=== PATIENT | female | born 1960 | race Asian ===

== ENCOUNTER 2020-03-27 18:18 | Emergency (ER) | payer BC ==
[~2020-03-27] VITALS: Ht 149.9 cm; Wt 59.0 kg
[2020-03-27 21:04] LABS: BASO % 0 % (0-3); EOS % 0 % (0-3); HEMATOCRIT 44.8 % (36.0-47.0); HEMOGLOBIN 15.1 g/dL (12.0-15.5); LYMPH # 0.3 x10^3/uL (1.0-4.8); LYMPH % 2 % (24-48); MEAN CORPUSCULAR HEMOGLOBIN 26 pg (25-35); MEAN CORPUSCULAR HGB CONC 34 g/dL (31-37); MEAN CORPUSCULAR VOLUME 78 fL (79-100); MONO # 0.4 x10^3/uL (0.0-1.1); MONO % 2 % (0-9); NEUT # 14.1 x10^3/uL (1.8-7.7); NEUT % 95 % (31-73); PLATELET COUNT 200 x10^3/uL (140-400); RED BLOOD COUNT 5.74 x10^6/uL (3.50-5.40); RED CELL DISTRIBUTION WIDTH 13.7 % (11.5-14.5); WHITE BLOOD COUNT 14.9 x10^3/uL (4.0-11.0)
[2020-03-27 21:13] LABS: CALCIUM 9.8 mg/dL (8.5-10.1); CREATININE 0.9 mg/dL (0.6-1.0); GFR 63.9; POTASSIUM 3.9 mmol/L (3.5-5.1)
[2020-03-27 21:20] LABS: ALBUMIN 3.9 g/dL (3.4-5.0); ALBUMIN/GLOBULIN RATIO 0.9 (1.0-1.7); TOTAL BILIRUBIN 0.8 mg/dL (0.2-1.0); TOTAL PROTEIN 8.4 g/dL (6.4-8.2)
[2020-03-27 21:34] LABS: % BANDS 9 % (0-9); % BASOS 1 % (0-3); % EOS 1 % (0-5); % LYMPHS 1 % (24-48); % MONOS 3 % (0-10); % SEGS 85 % (35-66); PLT ESTIMATE ADEQUATE (ADEQUATE)
[2020-03-27] MEDS ORDERED: CONTRAST GIVEN. MC PRN (21:45)
[2020-03-27] MEDS ORDERED: IOHEXOL 300 MG/ML 100ML VIAL. IV ONE (22:00)
[2020-03-27] MEDS ORDERED: ONDANSETRON PF 4 MG/2 ML VIAL. IVP ONE (22:00)
[2020-03-27] MEDS ORDERED: MORPHINE SULFATE 2 MG/ML VIAL. IV ONE (22:00)
[2020-03-27] MEDS ORDERED: FAMOTIDINE 20 MG/2 ML VIAL IVP ONE (22:00)
--- NOTE | 2020-03-27 22:21 | RAD ---
Exam: CT abdomen/pelvis with intravenous contrast Indication: Nausea vomiting, abdominal pain. Comparison: None Technique: Helical CT imaging performed of the abdomen and pelvis after the intravenous administratio n of 75 mL Omnipaque 300 intravenous contrast. Sagittal and coronal reformats were obtained. One or more of the following individualized dose reduction techniques were utilized for this examinat ion: 1. Automated exposure control 2. Adjustment of the mA and/or kV according to patient size 3. Use of iterative reconstruction technique. Findings: Lower chest: Lung bases are clear. The heart is mildly enlarged. Liver: Normal. Gallbladder/Biliary Tree: Normal. Pancreas: Normal. Spleen: Normal. Adrenal Glands: Normal. Kidneys/Ureters/Bladder: Kidneys are normal in size and enhance symmetrically. No hydronephrosis. Ure ters and bladder are normal. Reproductive Organs: Uterus is unremarkable. No adnexal mass. Stomach, small bowel, and colon: Stomach is normal. No small bowel obstruction. The appendix is candida l. There is fluid throughout the colon consistent diarrheal disease. No focal bowel wall thickening. Vasculature: Abdominal aorta is normal in caliber. Partially calcified splenic artery aneurysm measur ing 1.2 cm. Lymph Nodes: No lymphadenopathy. Peritoneum and retroperitoneum: There is no free fluid or free air. Bones: No acute osseous abnormality. Impression: 1. There is fluid in the colon consistent with diarrheal disease. 2. Otherwise unremarkable CT of abdomen and pelvis. Electronically signed by: Anastasiia Womack MD (03/27/2020 10:19 PM) [id number]
[2020-03-27 23:30] VITALS: BP 116/63
[2020-03-27 23:33] LABS: BILIRUBIN,URINE NEGATIVE (NEG); CLARITY,URINE CLEAR; COLOR,URINE YELLOW; NITRITE,URINE NEGATIVE (NEG); PROTEIN,URINE NEGATIVE (NEG-TRACE); UROBILINOGEN,URINE 0.2 mg/dL (0.2 mg/dL)
[2020-03-27 23:39] LABS: BARBITURATES NEG (NEG); BENZODIAZEPINES NEG (NEG); CANNABINOIDS NEG (NEG); COCAINE NEG (NEG); METHADONE NEG (NEG); OPIATES NEG (NEG); PHENCYCLIDINE NEG (NEG)
[2020-03-27 23:40] LABS: AMPHETAMINE/METHAMPHETAMINE NEG (NEG)
[2020-03-27 23:42] LABS: BACTERIA,URINE 0 /HPF (0-FEW); WBC,URINE OCC /HPF (0-4)
[2020-03-27] MEDS ORDERED: DICY20TA3 PO (23:45)
[2020-03-27] MEDS ORDERED: PROC10TA57 PO (23:45)
--- NOTE | 2020-03-27 23:45 | PHYS DOC ---
Past Medical History Past Medical History: Hypertension (MJ ESTEBAN APRN) Past Surgical History: No Surgical History (MJ ESTEBAN APRN) Smoking Status: Never Smoker Alcohol Use: None (MJ ESTEBAN APRN) General Adult EDM: Chief Complaint: NAUSEA/VOMITING/DIARRHA HPI: HPI: Patient is a 60 year old female with history of hypertension who presents to the ED today complaining of nausea vomiting diarrhea and generalized mild abdominal pain that began this morning after having farrukh noodles and broccoli. Patient denies any hematemesis or melena. Denies any fever. 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 (MJ ESTEBAN APRN) Review of Systems: Review of Systems: Constitutional: Denies fever or chills. [] Eyes: Denies change in visual acuity. [] HENT: Denies nasal congestion or sore throat. [] Respiratory: Denies cough or shortness of breath. [] Cardiovascular: Denies chest pain or edema. [] GI: Reports generalized abdominal pain, nausea vomiting and diarrhea, denies any hematemesis or melena : Denies dysuria. [] Musculoskeletal: Denies back pain or joint pain. [] Integument: Denies rash. [] Neurologic: Denies headache, focal weakness or sensory changes. [] Psychiatric: Denies depression or anxiety. [] (MJ ESTEBAN APRN) Heart Score: Risk Factors: Risk Factors: DM, Current or recent (<one month) smoker, HTN, HLP, family history of CAD, obesity. Risk Scores: Score 0 - 3: 2.5% MACE over next 6 weeks - Discharge Home Score 4 - 6: 20.3% MACE over next 6 weeks - Admit for Clinical Observation Score 7 - 10: 72.7% MACE over next 6 weeks - Early Invasive Strategies (MJ ESTEBAN APRN) Current Medications: Current Medications Medications (Trade) Dose Ordered Sig/Sydni Start Time Stop Time Status Last Admin Dose Admin Famotidine (Pepcid Vial) 20 mg 1X ONCE 03/27/20 22:00 03/27/20 22:01 DC Info (CONTRAST GIVEN -- Rx MONITORING) 1 each PRN DAILY PRN 03/27/20 21:45 03/29/20 21:44 Iohexol (Omnipaque 300 Mg/ml) 75 ml 1X ONCE 1/1/21 22:00 03/27/20 22:01 DC 03/27/20 21:57 75 ML Morphine Sulfate (Morphine Sulfate) 2 mg 1X ONCE 03/27/20 22:00 03/27/20 22:01 DC Ondansetron HCl (Zofran) 4 mg 1X ONCE 03/27/20 22:00 03/27/20 22:01 DC (MJ ESTEBAN LENO SEWER) Allergies: Allergies: Allergies Coded Allergies Type Severity Reaction Last Updated Verified No Known Drug Allergies 03/27/20 No (MJ ESTEBAN LENO SEWER) Physical Exam: PE: Constitutional: Well developed, well nourished, no acute distress, non-toxic appearance. [] HENT: Normocephalic, atraumatic, bilateral external ears normal, oropharynx moist, no oral exudates, nose normal. [] Eyes: PERRLA, EOMI, conjunctiva normal, no discharge. [] Neck: Normal range of motion, no tenderness, supple, no stridor. [] Cardiovascular:Heart rate regular rhythm, no murmur [] Lungs & Thorax: Bilateral breath sounds clear to auscultation [] Abdomen: Bowel sounds normal, soft, no tenderness, no masses, no pulsatile masses. [] Skin: Warm, dry, no erythema, no rash. [] Back: No tenderness, no CVA tenderness. [] Extremities: No tenderness, no cyanosis, no clubbing, ROM intact, no edema. [] Neurologic: Alert and oriented X 3, normal motor function, normal sensory fun ction, no focal deficits noted. [] Psychologic: Affect normal, judgement normal, mood normal. [] (MJ ESTEBAN LENO SEWER) Current Patient Data: Labs: Laboratory Tests Test 03/27/20 20:50 White Blood Count 14.9 x10^3/uL (4.0-11.0) H Red Blood Count 5.74 x10^6/uL (3.50-5.40) H Hemoglobin 15.1 g/dL (12.0-15.5) Hematocrit 44.8 % (36.0-47.0) Mean Corpuscular Volume 78 fL (79-100) L Mean Corpuscular Hemoglobin 26 pg (25-35) Mean Corpuscular Hemoglobin Concent 34 g/dL (31-37) Red Cell Distribution Width 13.7 % (11.5-14.5) Platelet Count 200 x10^3/uL (140-400) Neutrophils (%) (Auto) 95 % (31-73) H Lymphocytes (%) (Auto) 2 % (24-48) L Monocytes (%) (Auto) 2 % (0-9) Eosinophils (%) (Auto) 0 % (0-3) Basophils (%) (Auto) 0 % (0-3) Neutrophils # (Auto) 14.1 x10^3/uL (1.8-7.7) H Lymphocytes # (Auto) 0.3 x10^3/uL (1.0-4.8) L Monocytes # (Auto) 0.4 x10^3/uL (0.0-1.1) Eosinophils # (Auto) 0.0 x10^3/uL (0.0-0.7) Basophils # (Auto) 0.0 x10^3/uL (0.0-0.2) Segmented Neutrophils % 85 % (35-66) H Band Neutrophils % 9 % (0-9) Lymphocytes % 1 % (24-48) L Monocytes % 3 % (0-10) Eosinophils % 1 % (0-5) Basophils % 1 % (0-3) Platelet Estimate Adequate (ADEQUATE) Sodium Level 139 mmol/L (136-145) Potassium Level 3.9 mmol/L (3.5-5.1) Chloride Level 104 mmol/L (98-107) Carbon Dioxide Level 27 mmol/L (21-32) Anion Gap 8 (6-14) Blood Urea Nitrogen 19 mg/dL (7-20) Creatinine 0.9 mg/dL (0.6-1.0) Estimated GFR (Cockcroft-Gault) 63.9 BUN/Creatinine Ratio 21 (6-20) H Glucose Level 147 mg/dL (70-99) H Calcium Level 9.8 mg/dL (8.5-10.1) Total Bilirubin 0.8 mg/dL (0.2-1.0) Aspartate Amino Transferase (AST) 33 U/L (15-37) Alanine Aminotransferase (ALT) 23 U/L (14-59) Alkaline Phosphatase 112 U/L (46-116) Total Protein 8.4 g/dL (6.4-8.2) H Albumin 3.9 g/dL (3.4-5.0) Albumin/Globulin Ratio 0.9 (1.0-1.7) L Lipase 116 U/L (73-393) Ethyl Alcohol Level < 10 mg/dL (0-10) Laboratory Tests 03/27/20 20:50 Laboratory Tests 03/27/20 20:50 Vital Signs: Vital Signs Date Time Temp Pulse Resp B/P (MAP) Pulse Ox O2 Delivery O2 Flow Rate FiO2 03/27/20 20:25 98.0 86 18 136/84 (101) 97 Room Air 98.0 (MJ ESTEBAN APRN) EKG: EKG: [] (MJ ESTEBAN APRN) Radiology/Procedures: Radiology/Procedures: []PROCEDURE: CT ABD PELV W/ IV CONTRST ONLY Exam: CT abdomen/pelvis with intravenous contrast Indication: Nausea vomiting, abdominal pain. Comparison: None Technique: Helical CT imaging performed of the abdomen and pelvis after the intravenous administration of 75 mL Omnipaque 300 intravenous contrast. Sagittal and coronal reformats were obtained. One or more of the following individualized dose reduction techniques were ut ilized for this examination: 1. Automated exposure control 2. Adjustment of the mA and/or kV according to patient size 3. Use of iterative reconstruction technique. Findings: Lower chest: Lung bases are clear. The heart is mildly enlarged. Liver: Normal. Gallbladder/Biliary Tree: Normal. Pancreas: Normal. Spleen: Normal. Adrenal Glands: Normal. Kidneys/Ureters/Bladder: Kidneys are normal in size and enhance symmetrically. No hydronephrosis. Ureters and bladder are normal. Reproductive Organs: Uterus is unremarkable. No adnexal mass. Stomach, small bowel, and colon: Stomach is normal. No small bowel obstruction. The appendix is normal. There is fluid throughout the colon consistent diarrheal disease. No focal bowel wall thickening. Vasculature: Abdominal aorta is normal in caliber. Partially calcified splenic artery aneurysm measuring 1.2 cm. Lymph Nodes: No lymphadenopathy. Peritoneum and retroperitoneum: There is no free fluid or free air. Bones: No acute osseous abnormality. Impression: 1. There is fluid in the colon consistent with diarrheal disease. 2. Otherwise unremarkable CT of abdomen and pelvis. Electronically signed by: Anastasiia Womack MD (03/27/2020 10:19 PM) [id number] DICTATED and SIGNED BY: ANASTASIIA WOMACK MD DATE: 03/27/20 [id number] (MJ ESTEBAN APRN) Course & Med Decision Making: Course & Med Decision Making Pertinent Labs and Imaging studies reviewed. (See chart for details) This is a 60-year-old female patient presenting to the ED today complaining of generalized abdominal pain, nausea vomiting and diarrhea that began this morning after having farrukh noodles and broccoli. CBC with a WBC of 14.9, CMP with no acute findings, CT of the abdomen and pelvic was noted for diarrheal state otherwise no acute findings. Patient was given IV fluids in the ED as well as Zofran. She states she is feeling better. She was tested for COVID-19. Instructed to quarantine until results are back. Discharge to home. Provided follow-up information. Patient is Vietnamese speaking and the daughter interpreted (MJ ESTEBAN APRN) Dragon Disclaimer: Dragon Disclaimer: This electronic medical record was generated, in whole or in part, using a voice recognition dictation system. (MJ ESTEBAN APRN) Departure Departure Impression: Primary Impression: Nausea and vomiting Qualified Codes: R11.2 - Nausea with vomiting, unspecified Additional Impressions: Diarrhea Qualified Codes: R19.7 - Diarrhea, unspecified Person under investigation for COVID-19 Disposition: 01 DC HOME SELF CARE/HOMELESS Condition: STABLE Referrals: UNKNOWN PCP NAME (PCP) HERMES HOUSTON MD follow up with your doctor in one week Patient Instructions: Diarrhea, Nausea and Vomiting, [id number] Additional Instructions: You were evaluated in the emergency room for nausea vomiting and diarrhea. Your work-up in the emergency room was negative for any acute findings, you were noted for diarrheal state. Take the prescribed medications as ordered. Follow- up with your doctor in 1 week. Maintain good and hygiene. Push fluids. Be tested for COVID-19. Quarantine yourself until results are back Scripts Prochlorperazine Maleate (Compazine) 10 Mg Tablet 1 TAB PO Q6HRS, #20 TAB 0 Refills Prov: MJ ESTEBAN APRN 03/27/20 Dicyclomine Hcl (DICYCLOMINE HCL) 20 Mg Tablet 1 TAB PO TID, #30 TAB 1 Refill Prov: MJ ESTEBAN LENO SEWER 03/27/20 Attending Signature Attending Signature I have reviewed the PA/ENGINEER [employer]'s note and plan of care. I was available for consultation as needed during the patient's visit in the emergency department. I agree with the clinical impression, plan, and disposition. (ENEIDA OCONNOR DO) MJ ESTEBAN LENO SEWER Mar 27, 2020 23:45 ENEIDA OCONNOR DO Mar 28, 2020 00:30
--- NOTE | 2020-03-30 14:06 | NUR ---
IP: Attempted to contact pt concerning COVID results. No answer. left a voicemail to return the call.
--- NOTE | 2020-03-30 16:41 | NUR ---
IP: Pt daughter returned the call. Pt does not speak Mozambican. Informed daughter of negative COVID test. She verbalized understanding.
== END 2020-03-28 00:25 | disposition home or self-care (01) ==
LOC: ER 18:18
DX: R11.2 Nausea with vomiting, unspecified (principal); Z20.822 Contact with and (suspected) exposure to COVID-19; R10.84 Generalized abdominal pain; R19.7 Diarrhea, unspecified; I10 Essential (primary) hypertension
CPT/HCPCS: 36415; 74177; 80053; 80307; 81001; 83690; 85007; 85025; 99285; C9803; G0480; Q9967; U0003